=== PATIENT | male | born 1965 | race Caucasian/White ===

== ENCOUNTER 2024-06-19 19:10 | Emergency (ER) | payer BC ==
[2024-06-19] MEDS ORDERED: Adacel Vial IM ONE (19:26)
[2024-06-19] MEDS: Adacel Vial IM ONE (19:31)
[2024-06-19 19:35] VITALS: RESP 16; TEMP 98.8
[2024-06-19] MEDS ORDERED: KEFLEX 500 MG ONE (19:38)
--- NOTE | 2024-06-19 19:38 | ERPHSYRPT ---
- History of Present Illness Time Seen by Provider: 06/19/24 19:30 Source: patient Exam Limitations: no limitations Patient Subjective Stated Complaint: pt states he was wacking weeds with a weed hook. pt states that hook went through his shoe and foot Triage Nursing Assessment: pt ambulate into the er; pt is axo x4; c/o puncture wound; states 1/[address] foot; puncture wound present to the planter to rt foot; skin PDW: no respiratory distress present; vitals wnl Physician History: This is a 59-year-old white male patient of Dr. Fu who was whacking weeds using a weed hook device. Patient had no socks on but did have issues. At 1 point earlier today he stepped backwards and stepped right on the end of the hook and it penetrated his shoe and went into his foot. There is no retained metal or foreign body. Patient continued to weed whack. However as the day went on he had more pain in this area on the plantar surface of his foot. His tetanus status is not up-to-date. Timing/Duration: today Quality: painful Severity: mild Location: feet (Plantar aspect right foot) Associated Symptoms: denies symptoms Allergies/Adverse Reactions: Sulfa (Sulfonamide Antibiotics) Allergy (Verified 06/19/24 19:27) Anaphylactic Reaction Hx Tetanus, Diphtheria Vaccination/Date Given: No Hx Influenza Vaccination/Date Given: No Hx Pneumococcal Vaccination/Date Given: No Immunizations Up to Date: No Travel Risk - International Travel Have you traveled outside of the country in past 3 weeks: No - Emerging Infectious Disease Are you exhibiting symptoms associated with any current EIDs: No - Review of Systems Constitutional: No Symptoms Eyes: No Symptoms Ears, Nose, & Throat: No Symptoms Respiratory: No Symptoms Cardiac: No Symptoms Abdominal/Gastrointestinal: No Symptoms Genitourinary Symptoms: No Symptoms Musculoskeletal: No Symptoms Skin: Other (Tender spot plantar surface right foot) Neurological: No Symptoms Psychological: No Symptoms Endocrine: No Symptoms Hematologic/Lymphatic: No Symptoms Immunological/Allergic: No Symptoms All Other Systems: Reviewed and Negative - Past Medical History Pertinent Past Medical History: No - Past Surgical History Past Surgical History: Yes Gastrointestinal: Hernia Repair - Social History Smoking Status: Never smoker Exposure to second hand smoke: No Drug Use: none - Social Determinants of Health Will the patient participate in the screening: Yes Do you worry about a steady place to live?: No Do you have any problems with any of the following?: No known problems In the past 12 months,have you had to go without utilities?: No Transportation Issues: No Has anyone in your support network made you feel unsafe?: No Have you or anyone in your house had to go without enough: No - Nursing Vital Signs Nursing Vital Signs: Initial Vital Signs Temperature 98.8 F 06/19/24 19:27 Pulse Rate 88 06/19/24 19:27 Respiratory Rate 16 06/19/24 19:27 Blood Pressure 136/86 06/19/24 19:27 O2 Sat by Pulse Oximetry 97 06/19/24 19:27 Pain Scale Pain Intensity 1 - Physical Exam General Appearance: no apparent distress, alert, anxiety Eye Exam: PERRL/EOMI, eyes nml inspection Ears, Nose, Throat Exam: normal ENT inspection, moist mucous membranes Neck Exam: normal inspection, non-tender, supple, full range of motion Respiratory Exam: airway intact, No chest tenderness, No respiratory distress Gastrointestinal/Abdomen Exam: No tenderness Rectal Exam: not done Back Exam: normal inspection, normal range of motion, No CVA tenderness, No vertebral tenderness Extremity Exam: normal range of motion, pelvis stable, tenderness (Plantar aspect right foot. Very hard to visualize the point of penetration. No bleeding. No redness) Neurologic Exam: alert, oriented x 3, cooperative, bass string winder II-XII nml as tested, normal mood/affect, nml cerebellar function, nml station & gait, sensation nml Skin Exam: normal color, warm, dry Lymphatic Exam: No adenopathy SpO2 Interpretation: normal SpO2: 97 O2 Delivery: Room Air - Course Nursing assessment & vital signs reviewed: Yes Ordered Tests: Medication Summary Discontinued Medications Generic Name Dose Route Start Last Admin Trade Name Freq PRN Reason Stop Dose Admin Cephalexin HCl 500 mg 06/19/24 19:36 Cephalexin Mh500 Mg Capsule PO 06/19/24 19:37 STAT ONE Diphtheria/Tetanus/Acell Pertussis 0.5 ml 06/19/24 19:26 06/19/24 19:31 Tdap --Diph,Pertuss(Acell),Tet Vac/Pf 0.5 Ml Vial IM 06/19/24 19:27 0.5 ml .ONCE ONE Administration Diphtheria/Tetanus/Acell Pertussis Confirm 06/19/24 19:26 Tdap --Diph,Pertuss(Acell),Tet Vac/Pf 0.5 Ml Vial Administered 06/19/24 19:27 Dose 0.5 ml IM .STK-MED ONE - Progress Progress: unchanged Progress Note: 06/19/24 19:41 My medical decision making and the assignment of low complexity to this patient's medical issue today is based on review of the patient's past medical history, review of the patient's medication list, reviewed patient drug allergy list, history of present illness and physical findings on examination. The workup in this patient today does not require any radiographic or laboratory studies. Will provide the patient with an Adacel injection as well as oral Keflex 500 mg capsule here in the emergency department and a prescription for 5 more days of the Keflex antibiotics. Counseled pt/family regarding: diagnosis, need for follow-up Medical Desision Making - Diagnostic Testing Diagnostic test were ordered, analyzed, and reviewed by me: No - Risk of complications The pt has a mod risk of morbidity or mortality based on: Need for prescription drug management - Departure Departure Disposition: Home Clinical Impression: Puncture wound of foot, right Condition: Stable Critical Care Time: No Referrals: JHONATAN FU MD [Primary Care Provider] - Follow up/PCP as directed Additional Instructions: May soak the right foot 3 times a day with warm soapy water warm Epsom salt water for the next 2 to 3 days. Do not use any antibiotic ointment lotions or creams. Take your oral antibiotics as instructed. Use Tylenol and ibuprofen for pain control. May also use an ice pack to the tender area. Call your primary care provider tomorrow, 06/20/2024 to make arrangements for follow-up appointment to be seen in the next 7 to 10 days. Prescriptions: Cephalexin Mh 500 mg [Keflex 500 mg] 500 mg PO TID #15 cap
[2024-06-19] MEDS: KEFLEX 500 MG PO ONE (19:39)
[2024-06-19 19:53] VITALS: BP 131/76; PULSE 80; O2SAT 96
== END 2024-06-19 19:54 | disposition home or self-care (01) ==
LOC: ED 19:10
DX: S91.331A Puncture wound without foreign body, right foot, initial encounter (principal); W22.8XXA Striking against or struck by other objects, initial encounter; Y93.H2 Activity, gardening and landscaping; Z79.899 Other long term (current) drug therapy; Z23 Encounter for immunization
CPT/HCPCS: 90471; 90715; 99282; A9270-GY